=== PATIENT | female | born 1950 | race Caucasian/White ===

== ENCOUNTER → 2018-06-08 | Outpatient (CLI) | payer MEDICARE ==
[~2018-06-08] MED LIST: DOBUTamine DRIP for NUC MED 500 MG in DEXTROSE/WATER 1 250ML.BAG IV ONE
--- NOTE | 2018-06-08 13:29 | P.STRESS ---
- Stress Test Note Stress Test Results/Findings: Exam Performed: dobutamine stress echo with con Exam Date: 06/08/18 Reason for Exam: Heart Murmur Height: 5 ft 4 in Weight: 90.718 kg Protocol: DSE Stage: 2 Duration of Exercise: 7:31 Resting Heart Rate: 66 Resting Blood Pressure: 135/74 Maximum Achieved Heart Rate: 142 Maximum Achieved Blood Pressure: 168/78 85% PMHR: 130 100% PMHR: 153 METS: na Technologist Comment: Stress Test Results/Findings: This is a 67-year-old female with history of hypertension and palpitations and smoking history. Being evaluated for cardiac status. Stress data Baseline EKG showed sinus rhythm with right bundle branch block pattern. Blood pressure at rest is 135/70. Pulse rate of 66. History and also dobutamine was initiated at 10 mics and was titrated to 30 mics, achieving a maximal heart rate of 142 with blood pressure 168/78. EKGs taken during and after the infusion did not reveal any significant changes from the baseline. Echo data: Baseline echo images showed normal wall motion and thickening. Exercise echo images showed augmentation of wall motion and thickening in all the segments. Final impression: #1. Negative dobutamine stress test #2. Negative dobutamine stress echo
== END | disposition home or self-care (01) ==
LOC: RADNMMAIN 09:41
PROVIDERS: ATTEND Family Medicine
DX: R00.0 Tachycardia, unspecified (principal); I45.19 Other right bundle-branch block
CPT/HCPCS: C8930; J1250; 93351

== ENCOUNTER → 2021-02-03 | Outpatient (CLI) | payer MEDICARE ==
--- NOTE | 2021-02-03 15:50 | NM ---
EXAMINATION TYPE: NM hepatobiliary w EF DATE OF EXAM: 02/03/2021 COMPARISON: NONE HISTORY: Generalized abdominal pain TECHNIQUE: After the intravenous administration of 3.8 mCi Tc 99m Mebrofenin hepatobiliary scintigrap hy is performed. Immediate images post injection. FINDINGS: There is satisfactory initial accumulation of tracer by the liver. The gallbladder is visualized wit hin 4 minutes. The small bowel activity is noted within 44 minutes. At one hour 8 ounces of oral en sure plus is given to mimic CCK and gallbladder ejection fraction is calculated at 73 %, in the erik l range. Therefore there is no scintigraphic evidence of cystic or common bile duct obstruction to s uggest acute cholecystitis or gallbladder dyskinesia. IMPRESSION: Exam is within normal limits.
== END | disposition home or self-care (01) ==
LOC: RADNMMAIN 12:32
PROVIDERS: ATTEND Family Medicine
DX: R10.84 Generalized abdominal pain (principal)
CPT/HCPCS: 78226; A9537

== ENCOUNTER → 2021-02-04 | Outpatient (CLI) | payer MEDICARE ==
--- NOTE | 2021-02-05 12:29 | MM ---
Reason for exam: clinical finding. Last mammogram was performed 16 years and 2 months ago. History: Patient is postmenopausal. Family history of breast cancer in daughter at age 40. Core biopsy of the right breast. Indicated problem(s): pain in the right breast. Physical Findings: Nurse did not find any significant physical abnormalities on exam. MG 3D Diag Mammo W/Cad HUNTER Bilateral CC and MLO view(s) were taken. No prior studies available for comparison. There are scattered fibroglandular densities. Ultrasound left axillary tail two nodules 14mm and 6mm. Ultrasound right breast at focal pain. These results were verbally communicated with the patient and result sheet given to the patient on 02/04/21. ASSESSMENT: Incomplete: need additional imaging evaluation, BI-RAD 0 RECOMMENDATION: Ultrasound of both breasts.
--- NOTE | 2021-02-05 12:32 | USB ---
Reason for exam: additional evaluation requested from abnormal screening. History: Patient is postmenopausal. Family history of breast cancer in daughter at age 40. Core biopsy of the right breast. US Breast Limited BILAT Technologist: Eugenia Gomes Left limited breast ultrasound including focal area of concern, retroareolar and axilla demonstrates a 1.0 x 0.9 x 0.6cm solid, hypoechoic, vascular lesion at 2 o'clock, corresponds to mammogram and a 2.6 x 1.2 x 1.0cm vascular lymph node at the axilla, no cortical thickening. Right limited breast ultrasound including focal area of concern, retroareolar and axilla demonstrates no sonographic finding at area of pain. These results were verbally communicated with the patient and result sheet given to the patient on 02/04/21. ASSESSMENT: Suspicious, BI-RAD 4 RECOMMENDATION: Ultrasound core biopsy of the left breast. Called Dr. Webster's office with mammographic findings and has scheduled an appointment for the patient for 02/26/21 at 2:[address] Murphy. Biopsy scheduled for 03/04/21 at 1 o'clock. PRELIMINARY REPORT CALLED AND FAXED TO DR. MURPHY ON 02/05/19.
== END | disposition home or self-care (01) ==
LOC: RADMAMWWP 12:58
PROVIDERS: ATTEND Family Medicine
DX: N64.89 Other specified disorders of breast (principal); N63.32 Unspecified lump in axillary tail of the left breast; Z78.0 Asymptomatic menopausal state; Z80.3 Family history of malignant neoplasm of breast
CPT/HCPCS: 77066; 76642; G0279; 77062

== ENCOUNTER → 2021-02-26 | Outpatient (CLI) | payer MEDICARE ==
[2021-02-26 14:12] VITALS: BP 142/86; PULSE 102; RESP 18; TEMP 97.9
--- NOTE | 2021-02-26 15:00 | P.GSHP ---
History of Present Illness H&P Date: 02/26/21 Chief Complaint: abnormal left bresat ultrasounda nd mammogram Venita is a 70 year old white female seen in consultation for Dr. Norwood regarding a left breast mammographic abnormality. The patient does not feel anything of concern in her left breast. She did note some tenderness in her right breast. She noted this for about 6 months. It is about a 3. It only bothered her when she was laying in bed against a pillow. It has not changed. The same tenderness is also noted now on the left side. He does not feel any discrete lumps masses or nodules of concern in either breast. She is not complaining of any nipple discharge or skin changes. She has not had any recent trauma or infection in the breast. Patient tried to get BRACA testing done but was denied. She did have a right breast biopsy approximately 35 years ago which was benign. caffiene: 1 cup coffee/day nicotine: stopped 20 years ago, 1PPD/30 years chocolate: rare Family history: mother: lymphoma father: lung cancer maternal grandmother: colon cancer daughter: of breast cancer at 43; no genetic testing Hormonal history: Menarche: 12 M2 breast fed: yes, first born at 18 menopause: 50 BCP: none IUD: 2 years Surgical history: tual ligation vein stripping bilateral knee replacement hip replacement knee surgery October 2020 right breast biopsy Medical History: none Social History: nicotine: Stopped 20 years ago Alcohol: wine daily drugs:none - Constitutional Constitutional: Denies chills, Denies fever - EENT Eyes: bilateral blurred vision Ears: deny: decreased hearing, tinnitus Ears, nose, mouth and throat: Denies headache, Denies sore throat - Breasts Breasts: bilateral: as per HPI - Cardiovascular Comment: palpitations Cardiovascular: Denies chest pain, Denies shortness of breath - Respiratory Respiratory: Denies cough, Denies 7 - Gastrointestinal Gastrointestinal: Reports diarrhea, Denies abdominal pain, Denies nausea, Denies vomiting - Genitourinary (Female) Genitourinary: Denies dysuria, Denies hematuria - Menstruation Menstruation: Reports postmenopausal - Musculoskeletal Comment: arthritis Musculoskeletal: Denies myalgias - Integumentary Integumentary: Denies pruritus, Denies rash - Neurological Neurological: Reports numbness, Denies weakness - Psychiatric Psychiatric: Denies anxiety, Denies depression - Endocrine Comment: weight gain 10 pounds with COVID Endocrine: Reports weight change, Denies fatigue - Hematologic/Lymphatic Comment: none - Allergic/Immunologic Allergic/Immunologic: Reports as per HPI Past Medical History History of Any Multi-Drug Resistant Organisms: None Reported Smoking Status: Former smoker Medications and Allergies Home Medications Medication Instructions Recorded Confirmed Type Rice 650 mg PO DAILY 02/26/21 02/26/21 History Ascorbic Acid [Vitamin C] 1,000 mg PO DAILY 02/26/21 02/26/21 History Biod Emulsion Forte 1 drop PO DAILY 02/26/21 02/26/21 History Chromium Picolinate 1,000 mcg PO DAILY 02/26/21 02/26/21 History Garlic 1 each PO DAILY 02/26/21 02/26/21 History Mildred 500 mg PO DAILY 02/26/21 02/26/21 History Liquid Iodine 1 drop PO DAILY 02/26/21 02/26/21 History Magnesium 200 mg PO DAILY 02/26/21 02/26/21 History Mv-Mn/Folic/Lutein/Herbal 293 1 each PO DAILY 02/26/21 02/26/21 History [Alive Women's 50 Plus Vitamins] [place]-3 Fatty Acids/Fish Oil [Fish 1 each PO DAILY 02/26/21 02/26/21 History Oil 1,000 mg Softgel] Super B Complex 1 tab PO DAILY 02/26/21 02/26/21 History Vitamin E 100 unit PO DAILY 02/26/21 02/26/21 History Allergies Allergy/AdvReac Type Severity Reaction Status Date / Time No Known Allergies Allergy Unverified 02/26/21 14:06 Surgical - Exam Vital Signs Temp Pulse Resp BP Pulse Ox 97.9 F 102 H 18 142/86 100 02/26/21 14:10 02/26/21 14:10 02/26/21 14:10 02/26/21 14:10 02/26/21 14:10 BMI 36.4 - General no distress - Eyes normal ocular movement - ENT no hearing loss, no congestion - Neck no masses, trachea midline - Respiratory normal expansion, normal respiratory effort, clear to auscultation - Cardiovascular Rhythm: regular Heart Sounds: normal: S1, S2 - Abdomen Abdomen: soft, non tender, no guarding, no rigid, no rebound - Integumentary normal turgor - Neurologic no disoriented, no combative - Musculoskeletal normal gait, normal posture - Psychiatric oriented to time, oriented to person, oriented to place, speech is normal, memory intact Breast exam: BRA: sports bra XXX inspection: Bilateral grade 2/3 ptosis Palpation: Right breast: Multi-positional exam fibrocystic changes no dominant masses or nodules of concern Right axilla: No adenopathy of concern Left breast: Multi-positional exam fibrocystic changes no dominant masses or nodules of concern Left axilla: No adenopathy of concern Results Mammogram and ultrasound reviewed in person with Dr. Fontaine and discussed with him Assessment and Plan Assessment: Impression: 1. Radiographic exam and ultrasound abnormality left breast 2. Fibrocystic breast changes 3. Family history of cancer 4. Family history of daughter of breast cancer/patient is interested in genetic testing Plan: 1. Stereotactic core biopsy left breast 2. Genetic counseling/possible genetic testing I have reviewed the patient's radiographs with the patient. We have talked about a stereotactic core biopsy versus an ultrasound core biopsy. After review with Dr. Fontaine he fills the stereo biopsy would be a better modality to do the biopsy. Risk of the procedure including bleeding, infection, reaction to the anesthetic. She understands and wishes to proceed. She also understands that if the lesion were not able to be sampled by stereo we may convert to an ultrasound biopsy for an open biopsy. CC: Dr. Norwood
== END ==
LOC: WWCWWP 13:58
PROVIDERS: ATTEND Surgery
DX: R92.8 Other abnormal and inconclusive findings on diagnostic imaging of breast (principal); N60.11 Diffuse cystic mastopathy of right breast; N60.12 Diffuse cystic mastopathy of left breast; Z80.3 Family history of malignant neoplasm of breast; Z87.891 Personal history of nicotine dependence

== ENCOUNTER → 2021-03-05 | Day surgery (SDC) | payer MEDICARE ==
[2021-03-05 07:26] VITALS: RESP 16
--- NOTE | 2021-03-05 08:54 | P.OP ---
Date of Procedure: 03/05/21 Preoperative Diagnosis: Mammographic abnormality/ultrasound abnormality left breast at 2 o'clock position Postoperative Diagnosis: Same Procedure(s) Performed: Stereotactic core biopsy left breast, and of ultrasound-guided core biopsy was discussed with radiology and the recommendation per Dr. Fontaine was for a stereotactic core biopsy Anesthesia: local Surgeon: Ameena Chapa Pathology: other (Breast tissue) Condition: stable Disposition: same day Indications for Procedure: Mammogram and ultrasound abnormality left breast at 2:00, after review with Dr. Fontaine from radiology's recommendation was that a stereo biopsy be performed rather than an ultrasound core biopsy Operative Findings: Fibrofatty breast tissue Description of Procedure: The patient is a 70-year-old white female who was noted to have a radiographic abnormality the 2 o'clock position of the left breast. Initial recommendation was for ultrasound-guided core biopsy however after review with Dr. Fontaine he recommended stereotactic core biopsy. This was discussed with the patient. Risks and benefits of the procedure were discussed with the patient as well. Alternatives such as watchful waiting or surgical resection were considered but not recommended. The patient was taken to the stereotactic core biopsy room. She was positioned on the low rad table. A funeral home associate film was obtained. The lesion of concern was identified. The lesion was targeted. The breast was prepped using Betadine. 20 mL of 1% lidocaine were used to anesthetize the area of concern. A 9-gauge vacuum-assisted core rotating biopsy needle was driven to the correct coordinates. A prefire film was obtained. The needle was noted to be in the correct location and a post fire film was obtained after the needle was fired. Again the needle was noted to be in the correct location. 12 core biopsies were obtained. A secure marked top at clip was placed. Postprocedure radiograph revealed the clip to be in the correct location. The patient tolerated procedure in stable condition. The patient will follow-up with Dr. San next week. The specimen was sent to pathology.
[2021-03-05 09:05] VITALS: BP 160/82; PULSE 81; TEMP 98.2
--- NOTE | 2021-03-05 09:45 | MM ---
EXAMINATION TYPE: MG stereo VAD BX LT DATE OF EXAM: 03/05/2021 COMPARISON: 02/04/2021 CLINICAL HISTORY: 2 adjacent left breast masses seen on recent mammogram. Decision was made by the breast surgeon to attempt stereotactic biopsy of the larger left breast mass. TECHNIQUE: Stereotactic guided core biopsy of left breast. FINDINGS: The following is per report as no radiologist was present: The procedure of stereotactic guided core biopsy was explained to the patient. Benefits, alternatives, and risks were discussed. An informed consent was then obtained. [facility]. Shortness pathway was lateral approach. I performed saw two adjacent masses on the stereo pair images and the surgeon performed the localization and I left the room, per hospital protocol. Dr. Chapa then performed the remainder of the procedure with no radiologist present. By report, A vacuum assisted biopsy gun was used to obtain multiple core samples. The patient tolerated the procedure well without any immediate complication. The patient was kept in the radiology department for short stay after the procedure and then discharged home in stable condition. Post biopsy mammogram shows the clip to appear in satisfactory position relative to the targeted area of concern on the preprocedure images. IMPRESSION: SUCCESSFUL, UNCOMPLICATED STEREOTACTIC GUIDED CORE BIOPSY OF AREA OF CONCERN IN THE LEFT BREAST, FULL PATHOLOGY RESULTS TO FOLLOW. No RADIOLOGIST WAS PRESENT FOR THE ACTUAL PROCEDURE. For full details, please see surgeon's note. Pathology Results: Benign LEFT BREAST, CORE BIOPSY: Benign fibroadenoma with focal microcalcification, sclerosing adenosis, fibrocystic change and columnar cell change (see note). Recommendation Follow up mammogram of the left breast in 6 months. NEELA
== END ==
LOC: RADMAMWWP 06:53
PROVIDERS: ATTEND Surgery
DX: D24.2 Benign neoplasm of left breast (principal)
CPT/HCPCS: 19081; A4648; J2001; 88305; 88342

== ENCOUNTER → 2021-03-12 | Outpatient (CLI) | payer MEDICARE ==
[2021-03-12 14:19] VITALS: PULSE 92; RESP 14; TEMP 98.2
--- NOTE | 2021-03-12 14:31 | P.PN ---
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 Pathology revealed fibroadenoma focal microcalcification, sclerosing adenosis, fibrocystic change and columnar cell change. The patient had a second very small area in proximity to the first nodule which after review with radiology it is felt that that area can be followed on mammogram and ultrasound in 6 months. The patient tolerated the procedure without difficulty. Objective - Vital Signs Vital signs: Vital Signs Temp 98.2 F 03/12/21 14:14 Pulse 92 03/12/21 14:14 Resp 14 03/12/21 14:14 BP Pulse Ox 97 03/12/21 14:14 Intake & Output 03/11/21 03/12/21 03/12/21 18:59 06:59 18:59 Weight 95.254 kg - Constitutional General appearance: Present: cooperative - EENT Eyes: Present: EOMI ENT: Present: hearing grossly normal - Neck Neck: Present: normal ROM - Respiratory Respiratory: bilateral: CTA - Cardiovascular Rhythm: regular Heart sounds: normal: S1, S2 - Musculoskeletal Musculoskeletal: Present: gait normal - Psychiatric Psychiatric: Present: A&O x's 3, appropriate affect, intact judgment & insight - Additional findings Additional findings: Biopsy site left breast mild ecchymosis, no evidence of infection or hematoma Assessment and Plan Assessment: Impression: 1. Patient status post her tactic core biopsy left breast/pathology benign fibroadenoma concordant 2. Second area in the left breast reviewed with radiology which is going to be followed radiographically Plan: 1. Repeat left breast mammogram in 6 months 2. Repeat left breast ultrasound in 6 months 3. Follow-up here in 6 months Cc: Dr. Norwood
== END ==
LOC: WWCWWP 14:01
PROVIDERS: ATTEND Surgery
DX: D24.2 Benign neoplasm of left breast (principal)

== ENCOUNTER → 2021-10-20 | Outpatient (CLI) | payer MEDICARE ==
--- NOTE | 2021-10-20 14:53 | MM ---
Reason for exam: follow-up at short interval from prior study. Last mammogram was performed 8 months ago. History: Patient is postmenopausal. Family history of breast cancer in daughter at age 40. Benign MG stereo VAD BX LT of the left breast, March 05, 2021. Core biopsy of the right breast. Physical Findings: Nurse did not find any significant physical abnormalities on exam. MG 3D Diag Mammo W/Cad LT CC and MLO view(s) were taken of the left breast. Prior study comparison: February 04, 2021, bilateral MG 3d diag mammo w/cad HUNTER. November 20, 2004, bilateral screening mammogram. The breast tissue is heterogeneously dense. This may lower the sensitivity of mammography. There are benign appearing vascular calcifications in the left breast. Previous mammotome biopsy in the left breast. There is chronic nodularity in the left breast. These results were verbally communicated with the patient and result sheet given to the patient on 10/20/21. ASSESSMENT: Benign, BI-RAD 2 RECOMMENDATION: Routine screening mammogram of both breasts in 4 months. Back on schedule for January 2022.
--- NOTE | 2021-10-20 14:55 | USB ---
Reason for exam: follow-up at short interval from prior study. History: Patient is postmenopausal. Family history of breast cancer in daughter at age 40. Benign MG stereo VAD BX LT of the left breast, March 05, 2021. Core biopsy of the right breast. US Breast Limited LT Left limited breast ultrasound including focal area of concern, retroareolar and axilla demonstrates a 5 x 2 x 4mm oval, cystic lesion at 12 o'clock, benign cyst and a 5 x 3 x 11mm oval, solid lesion at 2 o'clock, previously biopsied and decreased in size. These results were verbally communicated with the patient and result sheet given to the patient on 10/20/21. ASSESSMENT: Benign, BI-RAD 2 RECOMMENDATION: Routine screening mammogram of both breasts in 4 months. Back on schedule for January 2022.
== END | disposition home or self-care (01) ==
LOC: RADMAMWWP 13:26
PROVIDERS: ATTEND Surgery
DX: R92.8 Other abnormal and inconclusive findings on diagnostic imaging of breast (principal); Z78.0 Asymptomatic menopausal state; Z80.3 Family history of malignant neoplasm of breast
CPT/HCPCS: 77065; 76642; G0279; 77061

== ENCOUNTER → 2021-10-30 | Outpatient (CLI) | payer MEDICARE ==
[2021-10-30 13:49] VITALS: BP 169/84; PULSE 101; RESP 18; TEMP 98
--- NOTE | 2021-10-30 13:53 | P.PN ---
Subjective Progress Note Date: 10/30/21 Principal diagnosis: Fibroadenoma left breast Venita is a 70 year old white female seen in consultation for Dr. Norwood regarding a left breast mammographic abnormality. The patient does not feel anything of concern in her left breast. She did note some tenderness in her right breast. She noted this for about 6 months. It is about a 3. It only bothered her when she was laying in bed against a pillow. It has not changed. The same tenderness is also noted now on the left side. He does not feel any discrete lumps masses or nodules of concern in either breast. She is not complaining of any nipple discharge or skin changes. She has not had any recent trauma or infection in the breast. Patient tried to get BRACA testing done but was denied. She did have a right breast biopsy approximately 35 years ago which was benign. 10-30-21 Venita underwent a left breast stereotactic core biopsy on . This revealed a fibroadenoma. She additionally had genetic testing performed which revealed a variant of uncertain significance. She underwent a left breast mammogram and ultrasound on 2121 which was felt to be benign BIRADS 2 and routine screening mammogram of both breast in 4 months was recommended. She does not feel any new lumps masses or nodules of concern in either breast. caffiene: 1 cup coffee/day nicotine: stopped 20 years ago, 1PPD/30 years chocolate: rare Family history: mother: lymphoma father: lung cancer maternal grandmother: colon cancer daughter: of breast cancer at 43; no genetic testing Hormonal history: Menarche: 12 M2 breast fed: yes, first born at 18 menopause: 50 BCP: none IUD: 2 years Surgical history: tubal ligation vein stripping bilateral knee replacement hip replacement knee surgery October 2020 right breast biopsy cyst removed from left wrist stero biopsy left breast Medical History: none Social History: nicotine: Stopped 20 years ago Alcohol: wine daily drugs:none - Constitutional Constitutional: Denies chills, Denies fever - EENT Eyes: bilateral blurred vision Ears: deny: decreased hearing, tinnitus Ears, nose, mouth and throat: Denies headache, Denies sore throat - Breasts Breasts: bilateral: as per HPI - Cardiovascular Comment: palpitations Cardiovascular: Denies chest pain, Denies shortness of breath - Respiratory Respiratory: Denies cough - Gastrointestinal Gastrointestinal: Reports diarrhea, Denies abdominal pain, Denies nausea, Denies vomiting - Genitourinary (Female) Genitourinary: Denies dysuria, Denies hematuria - Menstruation Menstruation: Reports postmenopausal - Musculoskeletal Comment: arthritis Musculoskeletal: Denies myalgias - Integumentary Integumentary: Denies pruritus, Denies rash - Neurological Neurological: Reports numbness, Denies weakness - Psychiatric Psychiatric: Denies anxiety, Denies depression - Endocrine Comment: weight gain 10 pounds with COVID Endocrine: Reports weight change, Denies fatigue - Hematologic/Lymphatic Comment: none - Allergic/Immunologic Allergic/Immunologic: Reports as per HPI Objective - Constitutional General appearance: Present: cooperative - EENT Eyes: Present: EOMI ENT: Present: hearing grossly normal - Neck Neck: Present: normal ROM - Respiratory Respiratory: bilateral: CTA - Cardiovascular Rhythm: regular Heart sounds: normal: S1, S2 - Integumentary Integumentary: Present: normal turgor - Musculoskeletal Musculoskeletal: Present: gait normal - Psychiatric Psychiatric: Present: A&O x's 3, appropriate affect, intact judgment & insight - Additional findings Additional findings: breast exam: BRA: 36C inspection: Bilateral grade 3 ptosis Palpation: Right breast: Multiple positional exam fibrocystic changes no dominant masses or nodules of concern Right axilla: No adenopathy of concern left breast: Multiple position exam fibrocystic changes no dominant masses or nodules of concern Left axilla: No adenopathy of concern Assessment and Plan Assessment: Impression: Fibrocystic breast changes Known stable fibroadenoma left breast Plan: Repeat bilateral mammogram in 4 months with physician exam at that time CC: Dr. Norwood
== END ==
LOC: WWCWWP 13:20
PROVIDERS: ATTEND Surgery
DX: N60.11 Diffuse cystic mastopathy of right breast (principal); N60.12 Diffuse cystic mastopathy of left breast; D24.2 Benign neoplasm of left breast; Z87.891 Personal history of nicotine dependence

== ENCOUNTER → 2021-11-12 | Outpatient (CLI) | payer MEDICARE ==
[~2021-11-12] MED LIST changes: -DOBUTamine DRIP for NUC MED 500 MG in DEXTROSE/WATER 1 250ML.BAG IV ONE; +REGADENOSON 0.4 MG/5 ML SYRINGE IV ONE
--- NOTE | 2021-11-12 13:28 | NM ---
EXAMINATION TYPE: NM stress lexiscan cardiolite DATE OF EXAM: 11/12/2021 COMPARISON: NONE HISTORY: R07.9, chest pain TECHNIQUE: After the intravenous administration of 9.2 mCi Tc 99m Sestamibi - Cardiolite resting SPE CT images acquired 45 minutes post injection. The patient received 0.4mg Lexiscan, 25.8 mCi Tc 99m Sestamibi - Stress images obtained [address] injection FINDINGS: Review of stress and rest SPECT images demonstrates some mild decreased uptake along the inferolatera l left ventricle on stress and rest images, towards the apex there is decreased uptake somewhat more so on stress images than on rest images. Gated analysis shows normal wall motion with an estimated l eft ventricular ejection fraction of 68 %. 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 This message alert has been sent to Jeni Norwood DO via the preferences provided by the clinician for the receipt of Radiology Critical Findings. Message ID [id number].
--- NOTE | 2021-11-12 14:48 | EST ---
EXERCISE STRESS AGE: 71 SEX: F HT: 5'4" WT: 210 lbs. PROTOCOL: Lexiscan STAGE: NA DURATION OF EXERCISE: NA HEART RATE REST: 76 BLOOD PRESSURE REST: 158/95 MAXIMUM HEART RATE ACHIEVED: 87 MAXIMUM BLOOD PRESSURE: 158/95 85% MPHR: 127 100% MPHR: 149 METS: NA RESULTS: Baseline rhythm is sinus mechanism. Rate of 76, right bundle branch block. Baseline blood pressure 158/95 mmHg. Patient received injection of Lexiscan. Electrocardiographic monitoring revealed no evidence of diagnostic ischemic ST deviation. Cardiolite was injected per protocol. CONCLUSION: 1. Nondiagnostic electrocardiographic stress testing. 2. Nuclear images will be reported separately. MMODL / IJN: [id number] /
[2021-11-12 15:01] LABS: HCT 43.9 % (37.2-46.3); MCH 31.5 pg (27.0-32.0); MCHC 31.9 g/dL (32.0-37.0); MCV 98.9 fL (80.0-97.0); Mean Platelet Volume 11.1 fL (9.5-12.2); NRBC Per 100 WBC 0 /100 WBCS (0.0-0.0); Platelet Count 232 X 10*3/uL (140-440); RBC 4.44 X 10*6/uL (4.10-5.20); RDW 12.6 % (11.5-14.5); WBC 4.37 X 10*3/uL (4.50-10.00)
[2021-11-12 15:12] LABS: ALT 32 U/L (8-44); AST 31 U/L (13-35); African American GFR (CKD) 74.6 (60.0-200.0); Albumin 4.4 g/dL (3.8-4.9); Albumin/Globulin Ratio 1.69 (1.60-3.17); Alkaline Phosphatase 63 U/L (41-126); BUN/Creat Ratio 15.78 Ratio (12.00-20.00); Blood Urea Nitrogen 14.2 mg/dL (9.0-27.0); Calcium 9.2 mg/dL (8.7-10.3); Carbon Dioxide 23.2 mmol/L (20.0-27.5); Chloride 104 mmol/L (96-109); Chol/HDL Ratio 2.76 Ratio; Globulin 2.6 g/dL (1.6-3.3); Glucose 104 mg/dL (70-110); LDL Cholesterol,Calculated 127.6 mg/dL (0.0-131.0); Non-African American GFR(CKD) 64.3 (60.0-200.0); Potassium 4.8 mmol/L (3.5-5.5); Sodium 140 mmol/L (135-145)
== END | disposition home or self-care (01) ==
LOC: RADNMMAIN 08:25
PROVIDERS: ATTEND Family Medicine
DX: R07.89 Other chest pain (principal); W18.2XXA Fall in (into) shower or empty bathtub, initial encounter
CPT/HCPCS: 93017; 80061; 80053; 84443; 85027; 83036; 78452; A9500; J2785

== ENCOUNTER → 2022-01-05 | Outpatient (CLI) | payer MEDICARE ==
[2022-01-05 19:18] LABS: HCT 42.4 % (37.2-46.3); HGB 13.9 g/dL (12.0-15.0); MCH 32.3 pg (27.0-32.0); MCHC 32.8 g/dL (32.0-37.0); MCV 98.4 fL (80.0-97.0); Mean Platelet Volume 10.8 fL (9.5-12.2); NRBC Per 100 WBC 0 /100 WBCS (0.0-0.0); Platelet Count 212 X 10*3/uL (140-440); RBC 4.31 X 10*6/uL (4.10-5.20); RDW 12.4 % (11.5-14.5); WBC 5.25 X 10*3/uL (4.50-10.00)
[2022-01-05 19:40] LABS: African American GFR (CKD) 86.6 (60.0-200.0); Anion Gap 9.6 mmol/L (10.00-18.00); Blood Urea Nitrogen 10.6 mg/dL (9.0-27.0); Carbon Dioxide 25.8 mmol/L (20.0-27.5); Non-African American GFR(CKD) 74.7 (60.0-200.0); Potassium 4.8 mmol/L (3.5-5.5)
== END | disposition home or self-care (01) ==
LOC: LABPAT 10:08
PROVIDERS: ATTEND Internal Medicine Interventional Cardiology
DX: Z01.812 Encounter for preprocedural laboratory examination (principal); R94.39 Abnormal result of other cardiovascular function study
CPT/HCPCS: 36415; 80051; 82565; 84520; 85027

== ENCOUNTER → 2022-01-11 | Day surgery (SDC) | payer MEDICARE ==
[2022-01-07 18:02] VITALS: BMI 37.8
[~2022-01-11] MED LIST changes: +ALPRAZolam 0.25 MG TAB PO PRN; +ALPRAZolam 0.5 MG TAB ONE; +ALPRAZolam 0.5 MG TAB PO PRN; +ASPIRIN 325 MG TAB PO STA; +ATORVASTATIN 80 MG TAB PO STA; +HEPARIN SODIUM 1,000 UN/ML (10ML VL) ONE; +HEPARIN SODIUM,PORCINE 10,000 UNIT in SODIUM CHLORIDE 0.9% 1,000 ML IRRIGATION PRN; +HEPARIN SODIUM,PORCINE 2,500 UNIT in SODIUM CHLORIDE 0.9% 250 ML IRRIGATION PRN; +IOPAMIDOL-370 100ML BTL INJ ONE; +IV FLUID CONTINUATION 1,000 ML IV ONE; +LIDOCAINE 1% INJ 10MG/ML (5 ML VIAL-PF) SQ ONE; +NITROGLYCERIN SL TABS 0.4 MG TAB SUBLINGUAL PRN; -REGADENOSON 0.4 MG/5 ML SYRINGE IV ONE; +SODIUM CHLORIDE 0.9% 1,000 ML in EMPTY BAG 1 BAG IV SCH; +fentaNYL (PF) 50 MCG/ML 2 ML AMP IV ONE; +fentaNYL (PF) 50 MCG/ML 2 ML AMP ONE
[2022-01-11] MEDS: MIDAZOLAM 2 MG/2 ML VIAL IV ONE ×4 (10:40→11:12)
[2022-01-11] MEDS: VERAPAMIL SYRINGE (5 MG/10 ML) INTRAARTER ONE ×2 (10:46→10:56)
--- NOTE | 2022-01-11 12:51 | CC ---
CARDIAC CATHETERIZATION REPORT DATE OF SERVICE: 01/11/2022 PROCEDURE: Left heart catheterization and coronary angiography. PERFORMED BY: Dr. Stef Garrett. Moderate conscious sedation time was 13 minutes. Patient was administered Versed and fentanyl. Oxygen saturation, hemodynamics and EKG were monitored closely. CLINICAL INFORMATION: Mrs. Venita Orellana is a 71-year-old lady with history of abnormal stress test, hypertension and hyperlipidemia who has been having symptoms of exertional shortness of breath and chest tightness. Because of a positive stress test and risk factors, she was advised cardiac catheterization and brought in for the procedure electively after due discussion regarding risks, benefits and options. PROCEDURE NOTE: Under local anesthesia and strict aseptic precautions, a 6-Chinese introducer was placed in the right radial artery. Using JL3.5 and JR4 catheters I performed coronary angiography, and the same right Mandeep catheter was used to check LV pressure, but LV gram was not performed. Following the procedure, the sheath was taken out and a TR band applied as per protocol, with saturation in the fingers of the right hand of about 92%. CARDIAC CATHETERIZATION FINDINGS: The left ventricular end-diastolic pressure was about 8 mmHg without any gradient across aortic valve. CORONARY ANGIOGRAPHY FINDINGS: RIGHT CORONARY ARTERY: Large dominant vessel has no significant disease. It bifurcates into a larger PLV and smaller PDA, both of which have minor irregularities but no significant disease. LEFT MAIN CORONARY ARTERY: Short patent vessel free of significant disease that bifurcates into LAD and circumflex. The left main itself is free of significant disease. LEFT ANTERIOR DESCENDING CORONARY ARTERY: This is a fair-caliber system and gives off two diagonal branches very proximally. Following the diagonal branches, the LAD is relatively smaller in caliber and distribution and gives off septal branches. The second diagonal branch is much larger and almost runs in the same LAD distribution and then laterally has minor irregularities. The mid LAD has about a 30% to 35% narrowing in the vessel, tapers to a smaller caliber towards the apex. It gives off small septal branches. The first diagonal is smaller in caliber and distribution but has no significant disease. The LAD therefore is relatively small in caliber and distribution. The first and second diagonal branches are of fair caliber. Second diagonal branch especially runs more in the LAD distribution, has minor irregularities. LAD itself has a 30% narrowing and distally a small-caliber vessel. LEFT POSTERIOR CIRCUMFLEX CORONARY ARTERY: Technically a nondominant vessel, gives off a single obtuse marginal and then an AV groove branch. There are minor irregularities. No significant disease noted in the circumflex system. LEFT VENTRICULOGRAM: Left ventriculogram was not performed. FINAL IMPRESSION: This patient has a right-dominant system. No significant disease in the dominant RCA or the nondominant circumflex. LAD has multiple branches, mainly a diagonal branch that almost runs in the LAD distribution, and another second diagonal branch as well. No significant disease, but minor irregularities of about 30% are noted in the LAD system. Normal filling pressures. No gradient. RECOMMENDATIONS: Findings were discussed with the patient and I also spoke to her son and daughter-in- law by phone. Will continue medical therapy with risk factor modification. She will be discharged today and I will see her in the office on Tuesday. Discharge instructions regarding activity, diet and medications were given. MMODL / IJN: [id number] /
== END ==
LOC: CATHCVL 09:20
PROVIDERS: ATTEND Internal Medicine Interventional Cardiology
DX: I25.10 Atherosclerotic heart disease of native coronary artery without angina pectoris (principal); R94.39 Abnormal result of other cardiovascular function study; I10 Essential (primary) hypertension; E78.2 Mixed hyperlipidemia; F17.210 Nicotine dependence, cigarettes, uncomplicated; Z20.822 Contact with and (suspected) exposure to COVID-19; Z79.899 Other long term (current) drug therapy; Z79.82 Long term (current) use of aspirin
CPT/HCPCS: 93458; 87635; C1894; J2250; J2001; J3010; J1644; Q9967

== ENCOUNTER → 2022-02-08 | Outpatient (CLI) | payer MEDICARE ==
--- NOTE | 2022-02-10 08:48 | MM ---
Reason for Exam: Screening (asymptomatic). Last screening mammogram was performed 12 month(s) ago. Patient History: Menarche at age 12. Postmenopausal. Core Biopsy on the Right side. 03/05/2021, Benign Core Biopsy on the left side. Daughter had breast cancer, age 40. Risk Values: Elisabeth 5 year model risk: 4.8%. NCI Lifetime model risk: 12.9%. Film Views: Bilateral CC views were taken. Bilateral MLO views were taken. Prior Study Comparison: 11/20/2004 Bilateral Screening Mammogram, [facility]. 02/04/2021 Bilateral Diagnostic Mammogram, [facility]. 10/20/2021 Left Diagnostic Mammogram, [facility]. Tissue Density: There are scattered fibroglandular densities. Findings: Analyzed By CAD. There is no suspicious group of microcalcifications or new suspicious mass in either breast. Postbiopsy clips are present bilaterally. No significant interval change is evident. Overall Assessment: Benign, BI-RAD 2 Management: Screening Mammogram of both breasts in 1 year. A clinical breast exam by your physician is recommended on an annual basis and results should be correlated with mammographic findings. Electronically signed and approved by: Sunday Fontaine D.O. Radiologis
== END | disposition home or self-care (01) ==
LOC: RADMAMWWP 13:34
PROVIDERS: ATTEND Surgery
DX: Z12.31 Encounter for screening mammogram for malignant neoplasm of breast (principal); Z78.0 Asymptomatic menopausal state; Z80.3 Family history of malignant neoplasm of breast
CPT/HCPCS: 77063; 77067

== ENCOUNTER 2022-12-10 08:40 | Day surgery (SDC) | payer MEDICARE ==
[2022-12-07 14:21] VITALS: BMI 36.0
[~2022-12-10 08:40] MED LIST changes: -ALPRAZolam 0.25 MG TAB PO PRN; -ALPRAZolam 0.5 MG TAB ONE; -ALPRAZolam 0.5 MG TAB PO PRN; -ASPIRIN 325 MG TAB PO STA; -ATORVASTATIN 80 MG TAB PO STA; -HEPARIN SODIUM 1,000 UN/ML (10ML VL) ONE; -HEPARIN SODIUM,PORCINE 10,000 UNIT in SODIUM CHLORIDE 0.9% 1,000 ML IRRIGATION PRN; -HEPARIN SODIUM,PORCINE 2,500 UNIT in SODIUM CHLORIDE 0.9% 250 ML IRRIGATION PRN; -IOPAMIDOL-370 100ML BTL INJ ONE; -IV FLUID CONTINUATION 1,000 ML IV ONE; +LACTATED RINGERS 1,000 ML IV SCH; +LIDOCAINE 1% (10MG/ML) FOR IV START INTRADERMA PRN; -LIDOCAINE 1% INJ 10MG/ML (5 ML VIAL-PF) SQ ONE; -NITROGLYCERIN SL TABS 0.4 MG TAB SUBLINGUAL PRN; -SODIUM CHLORIDE 0.9% 1,000 ML in EMPTY BAG 1 BAG IV SCH; -fentaNYL (PF) 50 MCG/ML 2 ML AMP IV ONE; -fentaNYL (PF) 50 MCG/ML 2 ML AMP ONE
[2022-12-10 09:13] VITALS: RESP 16; TEMP 98.3
[2022-12-10] MEDS ORDERED: LIDOCAINE 2% INJ 20 MG/ML (2 ML VIAL) ONE (09:43)
[2022-12-10] MEDS ORDERED: PROPOFOL 10 MG/ML 20 ML VIAL IV ONE (09:43)
--- NOTE | 2022-12-10 10:05 | P.PCN ---
Date of Procedure: 12/10/22 Procedure(s) Performed: Brief history: Patient is a pleasant 70-year-old white female scheduled for an elective upper endoscopy as well as colonoscopy as a part of evaluation of intermittent epigastric pain and chest pressure and screening for colon cancer Procedure performed: Esophagogastroduodenoscopy with biopsy Colonoscopy with snare polypectomy Preoperative diagnosis: GERD Screening for colon cancer Anesthesia: MAC Procedure: After informed consent was obtained from the patient was brought into the endoscopy unit and IV sedation was administered by anesthesia under continuous monitoring. Initially upper endoscopy was done. The Olympus GF 160 video endoscope was inserted inserted into the mouth and esophagus intubated without any difficulty and was gradually advanced into the stomach and duodenum and carefully examined. The bulb and second part of the duodenum appeared normal. The scope was then withdrawn into the stomach adequately insufflated with air and upon careful examination the antrum had mild gastritis and biopsies were done from this area. Mucosa of the body, cardia and funan atrophic-appearing mucosa and multiple biopsies were done from this area.The scope was then withdrawn into the esophagus. The GE junction was located at 40 cm to the incisors. It appeared regular with no erythema erosions or ulcerations. Rest of the esophagus appeared normal. Patient tolerated the procedure well. At this time the patient continued to remain sedation. Initial digital rectal examination was normal. Olympus CF 160 video colonoscope was then inserted into the rectum and gradually advanced to the cecum without any difficulty. Careful examination was performed as the scope was gradually being withdrawn. The prep was excellent. The cecum, ascending colon, transverse colon, appeared normal. In the distal descending colon at 40 cm from the anal was there was a 1.5 cm pedunculated polyp that was removed by snare polypectomy. Rest of the descending colon, sigmoid colon and rectum appeared normal. Retroflexion was performed in the rectum and no lesions were noted. Patient tolerated the procedure well. Impression: 1. Upper endoscopy revealed diffuse gastritis with atrophic appearing mucosa in the gastric body status post multiple biopsies 2. Colonoscopy revealed 1.5 cm distal descending colon polyp at 40 cm from the anal verge status post polypectomy Recommendations: Findings of this examination were discussed with the patient as well as her family. She was advised to follow with the biopsy results. In the biopsy results adenoma she can have a repeat colonoscopy in 3 years
[2022-12-10 10:15] VITALS: BP 150/94; PULSE 92
[2022-12-10] MEDS ORDERED: hydrALAZINE HCL 20 MG/ML 1 ML VIAL ONE (11:07)
== END 2022-12-10 11:58 | disposition home or self-care (01) ==
LOC: ORWHC2ENDO 08:40
PROVIDERS: ATTEND Internal Medicine Gastroenterology
DX: Z12.11 Encounter for screening for malignant neoplasm of colon (principal); D12.4 Benign neoplasm of descending colon; K21.9 Gastro-esophageal reflux disease without esophagitis; K29.50 Unspecified chronic gastritis without bleeding; Z79.82 Long term (current) use of aspirin; E78.5 Hyperlipidemia, unspecified
CPT/HCPCS: 88305; 45385; 43239; J0360; J2704; J2001

== ENCOUNTER → 2023-02-11 | Outpatient (CLI) | payer MEDICARE ==
--- NOTE | 2023-02-15 08:31 | MM ---
Reason for Exam: Screening (asymptomatic). Last screening mammogram was performed 12 month(s) ago. Patient History: Menarche at age 12. First Full-Term at age 17. Postmenopausal. Core Biopsy on the Right side. 03/05/2021, Benign Core Biopsy on the left side. Daughter had breast cancer, age 40. Risk Values: Elisabeth 5 year model risk: 4.9%. NCI Lifetime model risk: 12.3%. Prior Study Comparison: 02/04/2021 Bilateral Diagnostic Mammogram, [facility]. 10/20/2021 Left Diagnostic Mammogram, [facility]. 02/08/2022 Bilateral MG 3D screening mammo w/cad, [facility]. Tissue Density: There are scattered fibroglandular densities. Findings: Analyzed By CAD. There is no suspicious group of microcalcifications or new suspicious mass in either breast. Overall Assessment: Benign, BI-RAD 2 Management: Screening Mammogram of both breasts in 1 year. . Patient should continue monthly self-breast exams. A clinical breast exam by your physician is recommended on an annual basis. This exam should not preclude additional follow-up of suspicious palpable abnormalities. Note on Elisabeth scores and lifetime risk: 1. A Elisabeth score greater than 3% is considered moderate risk. If this is the case, consider specialist referral to assess eligibility for a risk reducing agent. 2. If overall lifetime risk for the development of breast cancer is 20% or higher, the patient may qualify for future screening with alternating mammogram and breast MRI. Electronically signed and approved by: Amadeo Ceja M.D. Radiologis
== END | disposition home or self-care (01) ==
LOC: RADMAMWWP 12:11
PROVIDERS: ATTEND Surgery
DX: Z12.31 Encounter for screening mammogram for malignant neoplasm of breast (principal); Z78.0 Asymptomatic menopausal state; Z80.3 Family history of malignant neoplasm of breast
CPT/HCPCS: 77063; 77067

== ENCOUNTER → 2023-02-18 | Outpatient (CLI) | payer MEDICARE ==
--- NOTE | 2023-02-18 13:29 | P.PN ---
Subjective Progress Note Date: 02/18/23 Principal diagnosis: fibrocystic breast changes Fibroadenoma left breast Venita is a 70 year old white female seen in consultation for Dr. Norwood regarding a left breast mammographic abnormality. The patient does not feel anything of concern in her left breast. She did note some tenderness in her right breast. She noted this for about 6 months. It is about a 3. It only bothered her when she was laying in bed against a pillow. It has not changed. The same tenderness is also noted now on the left side. He does not feel any discrete lumps masses or nodules of concern in either breast. She is not complaining of any nipple discharge or skin changes. She has not had any recent trauma or infection in the breast. Patient tried to get BRACA testing done but was denied. She did have a right breast biopsy approximately 35 years ago which was benign. 10-30-21 Venita underwent a left breast stereotactic core biopsy on . This revealed a fibroadenoma. She additionally had genetic testing performed which revealed a variant of uncertain significance. She underwent a left breast mammogram and ultrasound on 2121 which was felt to be benign BIRADS 2 and routine screening mammogram of both breast in 4 months was recommended. She does not feel any new lumps masses or nodules of concern in either breast. 02-18-23 Patient does not feel any lumps masses or nodules of concern in either breast. She had a bilateral mammogram 02-11-23 BIRAD 2. She has developed a rash on her right upper arm and back and chest. 5 year Elisabeth Risk: 4.9% lifetime risk: 12.3% We have discussed the prophylaxis and at this point the patient has declined. caffeine: 1 cup coffee/day nicotine: stopped 20 years ago, 1PPD/30 years chocolate: rare Family history: mother: lymphoma father: lung cancer maternal grandmother: colon cancer daughter: of breast cancer at 43; no genetic testing Hormonal history: Menarche: 12 M2 breast fed: yes, first born at 18 menopause: 50 BCP: none IUD: 2 years Surgical history: tubal ligation vein stripping bilateral knee replacement hip replacement knee surgery October 2020 right breast biopsy cyst removed from left wrist stero biopsy left breast Medical History: bronchitis one month ago Social History: nicotine: Stopped 20 years ago Alcohol: wine daily drugs:none - Constitutional Constitutional: Denies chills, Denies fever - EENT Eyes: bilateral blurred vision Ears: deny: decreased hearing, tinnitus Ears, nose, mouth and throat: Denies headache, Denies sore throat - Breasts Breasts: bilateral: as per HPI - Cardiovascular Comment: palpitations Cardiovascular: Denies chest pain, Denies shortness of breath - Respiratory Respiratory: Denies cough - Gastrointestinal Gastrointestinal: Reports diarrhea, Denies abdominal pain, Denies nausea, Denies vomiting - Genitourinary (Female) Genitourinary: Denies dysuria, Denies hematuria - Menstruation Menstruation: Reports postmenopausal - Musculoskeletal Comment: arthritis Musculoskeletal: Denies myalgias - Integumentary Integumentary: Denies pruritus, Denies rash - Neurological Neurological: Reports numbness, Denies weakness - Psychiatric Psychiatric: Denies anxiety, Denies depression - Endocrine Comment: weight gain 10 pounds with COVID Endocrine: Reports weight change, Denies fatigue - Hematologic/Lymphatic Comment: none - Allergic/Immunologic Allergic/Immunologic: Reports as per HPI Objective - Vital Signs Vital signs: Intake & Output 02/17/23 02/18/23 02/18/23 18:59 06:59 18:59 Weight 95.254 kg - Constitutional General appearance: Present: cooperative - EENT Eyes: Present: EOMI ENT: Present: hearing grossly normal - Neck Neck: Present: normal ROM - Respiratory Respiratory: bilateral: CTA - Cardiovascular Heart sounds: normal: S1, S2 - Integumentary Integumentary Comment(s): rash ovr right arm and upper chest - Musculoskeletal Musculoskeletal: Present: gait normal - Psychiatric Psychiatric: Present: A&O x's 3, appropriate affect, intact judgment & insight - Additional findings Additional findings: breast exam: BRA: 36C inspection: Bilateral grade 3 ptosis Palpation: Right breast: Multiple positional exam fibrocystic changes no dominant masses or nodules of concern Right axilla: No adenopathy of concern left breast: Multiple position exam fibrocystic changes no dominant masses or nodules of concern Left axilla: No adenopathy of concern Assessment and Plan Assessment: Impression: Fibrocystic breast changes Known stable fibroadenoma left breast Plan: Repeat bilateral mammogram one year with examination appointment with dermatology follow up with primary care related to cough CC: Dr. Norwood
== END ==
LOC: WWCWWP 12:29
PROVIDERS: ATTEND Surgery
DX: N60.12 Diffuse cystic mastopathy of left breast (principal); N60.11 Diffuse cystic mastopathy of right breast; D24.2 Benign neoplasm of left breast; Z80.0 Family history of malignant neoplasm of digestive organs; Z80.1 Family history of malignant neoplasm of trachea, bronchus and lung; Z96.653 Presence of artificial knee joint, bilateral; Z87.891 Personal history of nicotine dependence

== ENCOUNTER → 2025-01-25 | Outpatient (CLI) | payer MEDICARE ==
--- NOTE | 2025-01-25 14:47 | MM ---
Reason for Exam: Screening (asymptomatic). Last mammogram was performed 2 year(s) and 0 month(s) ago. Patient History: Menarche at age 12. First Full-Term at age 17. Postmenopausal. Core Biopsy on the Right side. 03/05/2021, Benign Core Biopsy on the left side. Daughter had breast cancer, age 40. Risk Values: Elisabeth 5 year model risk: 4.9%. NCI Lifetime model risk: 11.0%. Prior Study Comparison: 10/20/2021 Left Diagnostic Mammogram, [facility]. 02/08/2022 Bilateral MG 3D screening mammo w/cad, [facility]. 02/11/2023 Bilateral MG 3D screening mammo w/cad, [facility]. Tissue Density: The breasts are heterogeneously dense, which may obscure small masses. Findings: Analyzed By CAD. Right breast: Right breast biopsy clip. Right axilla is stable. There is no suspicious group of microcalcifications or new suspicious mass. Left breast: Left breast biopsy clip associated mass. There is no suspicious group of microcalcifications or new suspicious mass. Overall Assessment: Benign, BI-RAD 2 Management: Screening Mammogram of both breasts in [address] [facility] will attempt to contact patient to return for supplemental views and ultrasound if indicated. Patient should continue monthly self-breast exams. A clinical breast exam by your physician is recommended on an annual basis. This exam should not preclude additional follow-up of suspicious palpable abnormalities. Note on Elisabeth scores and lifetime risk: 1. A Elisabeth score greater than 3% is considered moderate risk. If this is the case, consider specialist referral to assess eligibility for a risk reducing agent. 2. If overall lifetime risk for the development of breast cancer is 20% or higher, the patient may qualify for future screening with alternating mammogram and breast MRI. [facility], , 01/25/2025 2:44 PM. Electronically signed and approved by: Ata Rubio DO
== END | disposition home or self-care (01) ==
LOC: RADMAMWWP 13:58
PROVIDERS: ATTEND Surgery
DX: Z12.31 Encounter for screening mammogram for malignant neoplasm of breast (principal); R92.333 Mammographic heterogeneous density, bilateral breasts; Z78.0 Asymptomatic menopausal state; Z80.3 Family history of malignant neoplasm of breast
CPT/HCPCS: 77063; 77067